=== PATIENT | female | born 1970 | race Caucasian/White ===

== ENCOUNTER 2021-05-30 19:39 | Emergency (ER) | payer MEDICAID ==
[2021-05-30] MEDS ORDERED: Sodium Chloride 0.9% 10 ML Syringe FLUSH PRN (21:04)
[2021-05-30] MEDS ORDERED: Ondansetron 4 MG/2 ML SDV IVPUSH ONE (21:12)
[2021-05-30] MEDS ORDERED: Famotidine 20 MG/2 ML SDV IVPUSH ONE (21:12)
[2021-05-30] MEDS ORDERED: HYDROmorphone 0.5 MG/0.5 ML Syringe IVPUSH ONE ×2 (21:12→23:14)
[2021-05-30] MEDS ORDERED: Sodium Chloride 0.9% 1,000 ML IV SCH (21:15)
--- NOTE | 2021-05-30 22:30 | EDM.PDOC ---
<AbyAsim L - Last Filed: 05/30/21 22:40> ED HPI GENERAL MEDICAL PROBLEM - General Chief Complaint: Abdominal Pain Stated Complaint: ABDOMINAL PAIN Time Seen by Provider: 05/30/21 20:53 Source of Information: Reports: Patient, RN Notes Reviewed - History of Present Illness INITIAL COMMENTS - FREE TEXT/NARRATIVE: 51 yr old female comes in with severe upper abd pain. She had frequent abd pain but this has been much worse than usual for about the past 5 hrs. Has had some nausea, not actively vomiting. No BM today. Not sure if she is constipated, "has not been eating much". No chest pain, fever or chills. The pain at times does radiate to her back. 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: Reports: Other Medication(s) Upper Abdominal Pain Score (Numeric/FACES): 8 - Related Data Allergies Allergy/AdvReac Type Severity Reaction Status Date / Time azithromycin [From Zithromax] Allergy Cannot Verified 05/30/21 20:23 Remember codeine Allergy Cannot Verified 05/30/21 20:23 Remember ketorolac Allergy Cannot Verified 05/30/21 20:23 Remember prussian blue (insoluble) Allergy Cannot Verified 05/30/21 20:23 [From Radiogardase] Remember topiramate [From Topamax] Allergy Cannot Verified 05/30/21 20:23 Remember Home Meds: Home Meds Aspirin 81 mg PO DAILY 05/30/21 [History] ClonazePAM [KlonoPIN] 0.5 mg PO BID PRN 05/30/21 [History] Clopidogrel [Plavix] 75 mg PO ASDIRECTED 05/30/21 [History] Escitalopram [Lexapro] 20 mg PO DAILY 05/30/21 [History] Levothyroxine 125 mcg PO ACBREAKFAST 05/30/21 [History] Metoprolol Succinate 50 mg PO ASDIRECTED 05/30/21 [History] Pravastatin [Pravachol] 20 mg PO DAILY 05/30/21 [History] Promethazine [Phenergan] 25 mg PO Q6H PRN 05/30/21 [History] Zonisamide 100 mg PO ASDIRECTED 05/30/21 [History] busPIRone [Buspar] 10 mg PO ASDIRECTED 05/30/21 [History] levETIRAcetam [Keppra] 750 mg PO BID 05/30/21 [History] oxyCODONE HCl/Acetaminophen [Percocet 10-325 mg Tablet] 1 each PO ASDIRECTED 05/30/21 [History] traZODone 1 tab PO BEDTIME 05/30/21 [History] Past Medical History HEENT History: Reports: None Cardiovascular History: Reports: High Cholesterol, Hypertension, [place] Other Cardiovascular History: age 37 AICD Respiratory History: Reports: None Gastrointestinal History: Reports: Chronic Diarrhea, GERD Genitourinary History: Reports: None [employer] DEAN History: Reports: Musculoskeletal History: Reports: Arthritis, Back Pain, Chronic Neurological History: Reports: Seizure Psychiatric History: Reports: Anxiety, Depression Endocrine/Metabolic History: Reports: Hypothyroidism Hematologic History: Reports: None Immunologic History: Reports: None Oncologic (Cancer) History: Reports: None Dermatologic History: Reports: None - Infectious Disease History Infectious Disease History: Reports: Chicken Pox - Past Surgical History HEENT Surgical History: Reports: Naso-Sinus Surgery, Tonsillectomy Cardiovascular Surgical History: Reports: AICD, Other (See Below) Other Cardiovascular Surgeries/Procedures: mesinteric bypass Social & Family History - Family History Family Medical History: No Pertinent Family History - Tobacco Use Tobacco Use Status *Q: Current Every Day Tobacco User Years of Tobacco use: 20 Packs/Tins Daily: 1 - Caffeine Use Caffeine Use: Reports: Coffee - Recreational Drug Use Recreational Drug Use: No ED ROS GENERAL - Review of Systems Review Of Systems: See Below Constitutional: Denies: Fever, Chills, Diaphoresis HEENT: Reports: No Symptoms Respiratory: Denies: Shortness of Breath Cardiovascular: Denies: Chest Pain GI/Abdominal: Reports: Abdominal Pain, Constipation, Nausea. Denies: Diarrhea, Hematochezia, Melena, Vomiting Musculoskeletal: Reports: Back Pain Skin: Reports: No Symptoms Neurological: Reports: Dizziness ED EXAM, GI/ABD - Physical Exam Exam: See Below General Appearance: Alert, Anxious, Moderate Distress Throat/Mouth: Normal Inspection Head: Atraumatic Neck: Supple Respiratory/Chest: No Respiratory Distress, Lungs Clear, Normal Breath Sounds Cardiovascular: Regular Rate, Rhythm GI/Abdominal Exam: Soft, Tender (upper abd and mid abd, lower abd nontender) Back Exam: No: CVA Tenderness (L), CVA Tenderness (R) Extremities: Normal Inspection. No: Pedal Edema, Leg Pain Skin Exam: Warm, Dry, Normal Color, No Rash Course - Re-Assessments/Exams Free Text/Narrative Re-Assessment/Exam: 05/30/21 22:42 WBC 12,000. CRP 0.2. Lipase and other chem. are nl. Flat and upright abd shows multiple air fluid levels. She has had prior major abd surgery as noted quite a few yrs ago so could have bowel obstruction. Have ordered CT of abd with oral and IV contrast. She states she did react to IV dye may yrs ago but did have a CT in [place] more recently, was premedicated and had no problems with that. It is now approaching end of my shift so will transfer care to Dr Estrada. Departure - Departure Disposition: Home, Self-Care 01 Clinical Impression: Abdominal pain - Discharge Information Referrals: Maryanne Mathis MD [Primary Care Provider] - Forms: ED Department Discharge Additional Instructions: Return to the emergency room with any questions problems or worsening symptoms. Use your routine medications for nausea and pain. Follow-up with your regular physician towards end of this week for recheck. Sepsis Event Note (ED) - Evaluation Sepsis Screening Result: No Definite Risk <Micah Estrada - Last Filed: 05/31/21 02:23> Course - Vital Signs Last Recorded V/S: Last Vital Signs Temp 36.7 C 05/30/21 20:34 Pulse 67 05/30/21 20:34 Resp 18 05/30/21 20:34 BP 143/85 H 05/30/21 20:34 Pulse Ox 100 05/30/21 20:34 - Orders/Labs/Meds Orders: Active Orders 24 hr Category Date Time Status Peripheral IV Care [RC] . DIRECTED Care 05/30/21 21:05 Active Abdomen 2V AP Flat Upright [CR] Stat Exams 05/30/21 21:13 Taken Abdomen Pelvis w Cont [CT] Stat Exams 05/30/21 22:40 Taken Lactated Ringers [Ringers, Lactated] 1,000 ml Med 05/30/21 22:45 Active IV ASDIRECTED Sodium Chloride 0.9% [Normal Saline] 1,000 ml Med 05/30/21 21:15 Active IV ONETIME Sodium Chloride 0.9% [Saline Flush] Med 05/30/21 21:04 Active 10 ml FLUSH ASDIRECTED PRN Peripheral IV Insertion Adult [OM.PC] Stat Oth 05/30/21 21:05 Ordered Medication Orders Sodium Chloride (Normal Saline) 1,000 mls @ 999 mls/hr IV ONETIME LAURA Last Admin: 05/30/21 21:22 Dose: 999 mls/hr Documented by: CLINTON Lactated Ringer's (Ringers, Lactated) 1,000 mls @ 150 mls/hr IV ASDIRECTED LAURA Last Admin: 05/30/21 23:05 Dose: 150 mls/hr Documented by: [id number] Sodium Chloride (Sodium Chloride 0.9% 10 Ml Syringe) 10 ml FLUSH ASDIRECTED PRN PRN Reason: Keep Vein Open Last Admin: 05/30/21 21:23 Dose: 10 ml Documented by: [id number] Labs: Laboratory Tests 05/30/21 05/30/21 Range/Units 21:20 21:20 WBC 12.31 H (3.98-10.04) K/mm3 RBC 4.27 (3.98-5.22) M/mm3 Hgb 13.9 (11.2-15.7) gm/dl Hct 38.4 (34.1-44.9) % MCV 89.9 (79.4-94.8) fl MCH 32.6 H (25.6-32.2) pg MCHC 36.2 H (32.2-35.5) g/dl RDW Std Deviation 39.8 (36.4-46.3) fL Plt Count 288 (182-369) K/mm3 MPV 8.7 L (9.4-12.3) fl Neut % (Auto) 77.1 H (34.0-71.1) % Lymph % (Auto) 12.4 L (19.3-51.7) % [place] % (Auto) 9.2 (4.7-12.5) % Eos % (Auto) 1.1 (0.7-5.8) Baso % (Auto) 0.2 (0.1-1.2) % Neut # (Auto) 9.49 H (1.56-6.13) K/mm3 Lymph # (Auto) 1.53 (1.18-3.74) K/mm3 [place] # (Auto) 1.13 H (0.24-0.36) K/mm3 Eos # (Auto) 0.14 (0.04-0.36) K/mm3 Baso # (Auto) 0.02 (0.01-0.08) K/mm3 Manual Slide Review Normal smear Sodium 138 (136-145) mEq/L Potassium 3.3 L (3.5-5.1) mEq/L Chloride 102 (98-107) mEq/L Carbon Dioxide 25 (21-32) mEq/L Anion Gap 14.3 (5-15) BUN 14 (7-18) mg/dL Creatinine 1.0 (0.55-1.02) mg/dL Est Cr Clr Drug Dosing 50.52 mL/min Estimated GFR (MDRD) 58 (>60) mL/min BUN/Creatinine Ratio 14.0 (14-18) Glucose 92 (70-99) mg/dL Calcium 9.4 (8.5-10.1) mg/dL Total Bilirubin 0.4 (0.2-1.0) mg/dL AST 24 (15-37) U/L ALT 42 (14-59) U/L Alkaline Phosphatase 48 (46-116) U/L C-Reactive Protein <0.2 (<1.0) mg/dL Total Protein 7.2 (6.4-8.2) g/dl Albumin 4.2 (3.4-5.0) g/dl Globulin 3.0 gm/dL Albumin/Globulin Ratio 1.4 (1-2) Lipase 126 (73-393) U/L Meds: Medications Generic Name Dose Route Start Last Admin Trade Name Freq PRN Reason Stop Dose Admin Sodium Chloride 1,000 mls @ 999 mls/hr 05/30/21 21:15 05/30/21 21:22 Normal Saline IV 999 mls/hr ONETIME LAURA Administration Lactated Ringer's 1,000 mls @ 150 mls/hr 05/30/21 22:45 05/30/21 23:05 Ringers, Lactated IV 150 mls/hr ASDIRECTED LAURA Administration Sodium Chloride 10 ml 05/30/21 21:04 05/30/21 21:23 Sodium Chloride 0.9% 10 Ml Syringe FLUSH 10 ml ASDIRECTED PRN Administration Keep Vein Open Discontinued Medications Generic Name Dose Route Start Last Admin Trade Name Freq PRAlessia Reason Stop Dose Admin Diphenhydramine HCl 25 mg 05/30/21 22:39 05/30/21 23:05 Diphenhydramine 50 Mg/Ml Sdv IVPUSH 05/30/21 22:40 25 mg ONETIME ONE Administration Famotidine 20 mg 05/30/21 21:12 05/30/21 21:23 Famotidine 20 Mg/2 Ml Sdv IVPUSH 05/30/21 21:13 20 mg ONETIME ONE Administration Hydromorphone HCl 0.5 mg 05/30/21 21:12 05/30/21 21:23 Hydromorphone 0.5 Mg/0.5 Ml Syringe IVPUSH 05/30/21 21:13 0.5 mg ONETIME ONE Administration Hydromorphone HCl 0.5 mg 05/30/21 23:14 05/30/21 23:24 Hydromorphone 0.5 Mg/0.5 Ml Syringe IVPUSH 05/30/21 23:15 0.5 mg ONETIME ONE Administration Methylprednisolone Sodium Succinate 125 mg 05/30/21 22:39 05/30/21 23:05 Methylprednisolone Sodium Succinate 125 Mg/2 Ml Sdv IVPUSH 05/30/21 22:40 125 mg ONETIME ONE Administration Ondansetron HCl 4 mg 05/30/21 21:12 05/30/21 21:23 Ondansetron 4 Mg/2 Ml Sdv IVPUSH 05/30/21 21:13 4 mg ONETIME ONE Administration - Re-Assessments/Exams Free Text/Narrative Re-Assessment/Exam: 05/31/21 02:19 Patient is doing better at this time she still has a little bit of nausea. She has a history of chronic nausea and abdominal pain but tonight things are much worse than normal. At this point the patient is doing considerably better and think she is okay to go home her CAT scan did not show anything definitive. I did discuss the findings of this with the patient. Repeated abdominal exam shows normal bowel sounds soft no localizing tenderness she is got some vague discomfort throughout but she says that is pretty much normal for her. At this point she would like to go home we will discharge. At this point patient declines needing other medications for symptom relief however needs to take her routine medications as she has not taken her evening meds she will take these immediately upon getting home and will delay her morning meds several hours. Departure - Departure Time of Disposition: 02:21 Sepsis Event Note (ED) - Focused Exam Vital Signs: Vital Signs Temp Pulse Resp BP Pulse Ox 05/30/21 20:34 36.7 C 67 18 143/85 H 100
[2021-05-30] MEDS ORDERED: methylPREDNISolone Sodium Succinate 125 MG/2 ML SDV IVPUSH ONE (22:39)
[2021-05-30] MEDS ORDERED: diphenhydrAMINE 50 MG/ML SDV IVPUSH ONE (22:39)
[2021-05-30] MEDS ORDERED: Lactated Ringers 1,000 ML IV SCH (22:45)
--- NOTE | 2021-05-31 08:14 | CR ---
Abdomen: Supine and upright views of the abdomen were obtained. Comparison: No prior abdominal imaging is available, subsequent CT abdomen and pelvis study performed on 05/31/21 is available. Air-fluid levels are seen within nondilated colon. Mildly dilated small bowel loops are seen with differential air-fluid levels. Prior surgery is noted. No free air is seen. Minimal scoliosis is noted within the spine. Prior AICD is noted. Impression: 1. Slightly abnormal bowel gas pattern raising the possibility of gastroenteritis versus mild partial small bowel obstruction. 2. Prior surgery. Diagnostic code #3
--- NOTE | 2021-05-31 08:39 | CT ---
CT abdomen and pelvis Technique: Multiple axial sections were obtained from above the dome of the diaphragm inferiorly through the pubic symphysis. Intravenous and oral contrast was utilized. Delayed images are also obtained through the abdomen and pelvis. Reconstructed coronal and sagittal images were obtained. Comparison: Prior abdomen radiograph of 05/30/21, 9:37 PM; no prior abdomen and pelvis CT is available. Findings: Contrast is noted within the small bowel. Small bowel appears slightly dilated. Scattered gas and fluid are seen within the colon. Visualized lung bases show mild atelectasis. Liver contains no focal abnormality. Gallbladder contains no calcified gallstones. Spleen appears within normal limits. Adrenal glands show no nodule. Kidneys show symmetric contrast enhancement. Delayed images show no cyst or solid abnormality within the kidneys. Contrast is noted on delayed images within the ureters and within the bladder. Pancreas shows no discrete abnormality. Abdominal aorta shows prominent and diffuse atherosclerotic change which continues into the iliac vessels. No retroperitoneal adenopathy or mesenteric abnormalities are seen. No pelvic mass or adenopathy is appreciated. Appendix is not definitely visualized due to fluid-filled small bowel loops in this area. Bone window settings were reviewed which show scattered degenerative change within the spine. Impression: 1. Slightly abnormal bowel gas pattern which represents either gastroenteritis or a mild partial small bowel obstruction. Please correlate with the patient's symptoms. 2. Nothing acute is otherwise seen on CT study of the abdomen and pelvis. Diagnostic code #3 Minimal disagree with preliminary report from [facility], finalized on 05/31/20, 2:51 AM CDT, code 2
== END 2021-05-31 02:35 | disposition home or self-care (01) ==
LOC: JD.ED 19:39
DX: R10.10 Upper abdominal pain, unspecified (principal); R11.0 Nausea; I10 Essential (primary) hypertension; I25.2 Old myocardial infarction; E03.9 Hypothyroidism, unspecified; E78.00 Pure hypercholesterolemia, unspecified; Z79.02 Long term (current) use of antithrombotics/antiplatelets; Z72.0 Tobacco use; Z79.82 Long term (current) use of aspirin
CPT/HCPCS: 36415; 74019; 74177; 80053; 83690; 85025; 86140; 96374; 96375; 96376; 99284; J1170; J1200; J2405; J2930; J3490; J7030; J7120; 99283

== ENCOUNTER 2021-09-06 10:18 | Emergency (ER) | payer MEDICAID ==
[2021-09-06] MEDS ORDERED: LORazepam 2 MG/ML SDV IVPUSH ONE (10:40)
[2021-09-06] MEDS ORDERED: Haloperidol Lactate 5 MG/ML SDV IVPUSH ONE (10:40)
--- NOTE | 2021-09-06 15:25 | EDM.PDOCBH ---
ED HPI GENERAL MEDICAL PROBLEM - General Chief Complaint: Behavioral/Psych Stated Complaint: MARINA AMB Time Seen by Provider: 09/06/21 10:30 Source of Information: Reports: Patient History Limitations: Reports: No Limitations - History of Present Illness INITIAL COMMENTS - FREE TEXT/NARRATIVE: Patient is a 51-year-old female with a past medical history of depression and anxiety presenting with a chief complaint of anxiety. Patient states she feels like her heart is pounding out of her chest and she cannot sit still. She has experienced this in the past but never this severe. She reports feeling worse more so over the past few days. She states she never leaves her house. She states she was home alone. Does not seem to know what is triggering it. She states she was seen by [facility] vickie in March but did not agree with treatment plans and did not take medications as recommended. She reports weaning off her Klonopin over the past year. She reports continued use of opioid pain medication. Patient denies lower extremity swelling, calf pain, palpitations. Patient denies any suicidal or homicidal ideations. Denies any sort of hallucinations or drug abuse. Treatments CLINICAL SUPPORT MANAGER: Reports: IV/IO Chest Pain Score (Numeric/FACES): 5 - Related Data Allergies Allergy/AdvReac Type Severity Reaction Status Date / Time azithromycin [From Zithromax] Allergy Cannot Verified 09/06/21 10:25 Remember codeine Allergy Cannot Verified 09/06/21 10:25 Remember ketorolac Allergy Cannot Verified 09/06/21 10:25 Remember prussian blue (insoluble) Allergy Cannot Verified 09/06/21 10:25 [From Radiogardase] Remember topiramate [From Topamax] Allergy Cannot Verified 09/06/21 10:25 Remember Home Meds: Home Meds Aspirin 81 mg PO DAILY 05/30/21 [History] Clopidogrel [Plavix] 75 mg PO DAILY 05/30/21 [History] Escitalopram [Lexapro] 20 mg PO DAILY 05/30/21 [History] Levothyroxine 125 mcg PO ACBREAKFAST 05/30/21 [History] Metoprolol Succinate 50 mg PO DAILY 05/30/21 [History] Pravastatin [Pravachol] 40 mg PO DAILY 05/30/21 [History] Promethazine [Phenergan] 12.5 mg PO Q4H PRN 05/30/21 [History] Zonisamide 400 mg PO BEDTIME 05/30/21 [History] levETIRAcetam [Keppra] 750 mg PO BID 05/30/21 [History] oxyCODONE HCl/Acetaminophen [Percocet 10-325 mg Tablet] 1 tab PO DAILY PRN 05/30/21 [History] traZODone 50 mg PO BEDTIME 05/30/21 [History] Past Medical History HEENT History: Reports: None Cardiovascular History: Reports: High Cholesterol, Hypertension, CT Other Cardiovascular History: age 37 AICD Respiratory History: Reports: None Gastrointestinal History: Reports: Chronic Diarrhea, GERD Genitourinary History: Reports: None 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: Musculoskeletal History: Reports: Arthritis, Back Pain, Chronic Neurological History: Reports: Seizure Psychiatric History: Reports: Anxiety, Depression Endocrine/Metabolic History: Reports: Hypothyroidism Hematologic History: Reports: None Immunologic History: Reports: None Oncologic (Cancer) History: Reports: None Dermatologic History: Reports: None - Infectious Disease History Infectious Disease History: Reports: Chicken Pox - Past Surgical History HEENT Surgical History: Reports: Naso-Sinus Surgery, Tonsillectomy Cardiovascular Surgical History: Reports: AICD, Other (See Below) Other Cardiovascular Surgeries/Procedures: mesinteric bypass Social & Family History - Family History Family Medical History: No Pertinent Family History - Tobacco Use Tobacco Use Status *Q: Current Every Day Tobacco User Years of Tobacco use: 35 Packs/Tins Daily: 0.5 - Caffeine Use Caffeine Use: Reports: Coffee - Recreational Drug Use Recreational Drug Use: No ED ROS GENERAL - Review of Systems Review Of Systems: See Below Free Text/Narrative/Comment: In addition to that documented in the HPI above, the additional ROS was obtained: Constitutional: Denies fevers or chills Eyes: Denies vision changes ENMT: Denies sore throat CV: Denies chest pain Resp: Denies SOB GI: Denies vomiting or diarrhea : Denies painful urination MSK: Denies recent trauma Skin: Denies new rashes Neuro: Denies new numbness or tingling or weakness Endocrine: Denies unexpected weight loss Heme: Denies bleeding disorders ED EXAM, BEHAVIORAL HEALTH - Physical Exam Exam: See Below Text/Narrative:: I have reviewed the triage vital signs Const: Patient is thin in appearance but nontoxic. Patient does appear extremely anxious demonstrating a mild degree of psychomotor agitation. Eyes: Pupils Equal and reactive to light bilaterally, no conjunctival injection HENT: No signs of trauma or swelling, Neck supple without meningismus CV: Regular Rate Rhythm, Warm, well-perfused extremities RESP: Unlabored respiratory effort GI: soft, non-tender, non-distended, no masses MSK: No gross deformities appreciated Skin: Warm, dry. No rashes Neuro: Alert, contact lens molder II-XII grossly intact. Sensation and motor function of extremities grossly intact. Psych: Anxious mood with tearful affect #1 Interpretation EKG Date: 09/06/21 Time: 11:00 Rhythm: NSR Rate (Beats/Min): 77 [place]: Normal P-Wave: Present QRS: Normal ST-T: Normal QT: Normal Comparison: NA - No Prior EKG EKG Interpretation Comments: Several PVCs noted. Otherwise, normal EKG COURSE, BEHAVIORAL HEALTH COMP - Course Vital Signs: Last Vital Signs Temp 36.6 C 09/06/21 10:19 Pulse 84 09/06/21 10:19 Resp 18 09/06/21 10:19 BP 148/126 H 09/06/21 10:19 Pulse Ox 100 09/06/21 10:19 Orders, Labs, Meds: Laboratory Tests 09/06/21 09/06/21 Range/Units 11:10 11:10 WBC 5.26 (3.98-10.04) K/mm3 RBC 4.39 (3.98-5.22) M/mm3 Hgb 14.1 (11.2-15.7) gm/dl Hct 40.2 (34.1-44.9) % MCV 91.6 (79.4-94.8) fl MCH 32.1 (25.6-32.2) pg MCHC 35.1 (32.2-35.5) g/dl RDW Std Deviation 39.8 (36.4-46.3) fL Plt Count 294 (182-369) K/mm3 MPV 8.6 L (9.4-12.3) fl Neut % (Auto) 71.6 H (34.0-71.1) % Lymph % (Auto) 19.6 (19.3-51.7) % [place] % (Auto) 8.2 (4.7-12.5) % Eos % (Auto) 0.4 L (0.7-5.8) Baso % (Auto) 0.2 (0.1-1.2) % Neut # (Auto) 3.77 (1.56-6.13) K/mm3 Lymph # (Auto) 1.03 L (1.18-3.74) K/mm3 [place] # (Auto) 0.43 H (0.24-0.36) K/mm3 Eos # (Auto) 0.02 L (0.04-0.36) K/mm3 Baso # (Auto) 0.01 (0.01-0.08) K/mm3 Sodium 139 (136-145) mEq/L Potassium 3.6 (3.5-5.1) mEq/L Chloride 103 (98-107) mEq/L Carbon Dioxide 23 (21-32) mEq/L Anion Gap 16.6 H (5-15) BUN 9 (7-18) mg/dL Creatinine 1.0 (0.55-1.02) mg/dL Est Cr Clr Drug Dosing TNP Estimated GFR (MDRD) 58 (>60) mL/min BUN/Creatinine Ratio 9.0 L (14-18) Glucose 99 (70-99) mg/dL Calcium 9.5 (8.5-10.1) mg/dL Total Bilirubin 0.5 (0.2-1.0) mg/dL AST 21 (15-37) U/L ALT 31 (14-59) U/L Alkaline Phosphatase 45 L (46-116) U/L Total Protein 7.5 (6.4-8.2) g/dl Albumin 4.2 (3.4-5.0) g/dl Globulin 3.3 gm/dL Albumin/Globulin Ratio 1.3 (1-2) Medications Discontinued Medications Generic Name Dose Route Start Last Admin Trade Name Freq PRN Reason Stop Dose Admin Haloperidol Lactate 2.5 mg 09/06/21 10:40 09/06/21 11:19 Haloperidol Lactate 5 Mg/Ml Sdv IVPUSH 09/06/21 10:41 2.5 mg ONETIME ONE Administration Lorazepam 0.5 mg 09/06/21 10:40 09/06/21 11:26 Lorazepam 2 Mg/Ml Sdv IVPUSH 09/06/21 10:41 0.5 mg ONETIME ONE Administration Departure - Departure Time of Disposition: 12:30 Disposition: Home, Self-Care 01 Clinical Impression: Panic disorder, Anxiety - Discharge Information *PRESCRIPTION DRUG MONITORING PROGRAM REVIEWED*: Not Applicable *COPY OF PRESCRIPTION DRUG MONITORING REPORT IN PATIENT MARIPOSA: Not Applicable Referrals: PCP,None [Primary Care Provider] - Forms: ED Department Discharge Sepsis Event Note (ED) - Focused Exam Vital Signs: Vital Signs Temp Pulse Resp BP Pulse Ox 09/06/21 10:19 36.6 C 84 18 148/126 H 100 - Assessment/Plan Assessment:: Patient is a 31-year-old female presenting to the emergency room with chief complaint of anxiety. Patient had unremarkable ER course. Patient felt significantly better after administration of Haldol and Ativan. Denies any chest pain or shortness of breath. Differential diagnosis considered including severe anemia, muscular abnormality, cardiac ischemia. Patient patient's history and examination, likely panic disorder with anxiety. Gee came and evaluated the patient in the emergency room and will follow up with the patient as an outpatient. They also agreed to drive the patient home after receiving this medication. Return precautions discussed with patient all questions were addressed and answered. Patient agrees with plan of care. Indication for emergent psychiatric hospitalization as patient does not demonstrate danger to herself or others. No evidence of underlying medical emergency at this time.
== END 2021-09-06 14:15 | disposition home or self-care (01) ==
LOC: JD.ED 10:18
DX: F41.0 Panic disorder [episodic paroxysmal anxiety] (principal); E78.00 Pure hypercholesterolemia, unspecified; I10 Essential (primary) hypertension; I25.2 Old myocardial infarction; K21.9 Gastro-esophageal reflux disease without esophagitis; E03.9 Hypothyroidism, unspecified; Z88.1 Allergy status to other antibiotic agents; Z88.5 Allergy status to narcotic agent; Z88.8 Allergy status to other drugs, medicaments and biological substances; Z79.82 Long term (current) use of aspirin; Z79.02 Long term (current) use of antithrombotics/antiplatelets; Z72.0 Tobacco use
CPT/HCPCS: 36415; 80053; 85025; 93005; 96374; 96375; 99284; J1630; J2060

== ENCOUNTER 2021-12-24 11:31 | Emergency (ER) | payer MEDICAID ==
[2021-12-24] MEDS ORDERED: Sodium Chloride 0.9% 1,000 ML IV STA (12:27)
[2021-12-24] MEDS ORDERED: Ondansetron 4 MG/2 ML SDV IVPUSH ONE (12:27)
[2021-12-24] MEDS ORDERED: Sodium Chloride 0.9% 10 ML Syringe FLUSH PRN (12:27)
[2021-12-24] MEDS ORDERED: HYDROmorphone 1 MG/ML Syringe IVPUSH ONE (12:29)
== END 2021-12-24 15:00 | disposition home or self-care (01) ==
LOC: JD.ED 11:31
DX: R10.84 Generalized abdominal pain (principal); E78.00 Pure hypercholesterolemia, unspecified; I10 Essential (primary) hypertension; I25.2 Old myocardial infarction; M19.90 Unspecified osteoarthritis, unspecified site; E03.9 Hypothyroidism, unspecified; Z88.1 Allergy status to other antibiotic agents; Z88.5 Allergy status to narcotic agent; Z88.8 Allergy status to other drugs, medicaments and biological substances; Z79.82 Long term (current) use of aspirin; Z79.02 Long term (current) use of antithrombotics/antiplatelets; Z79.899 Other long term (current) drug therapy
CPT/HCPCS: 36415; 80053; 80143; 80179; 80306; 80307; 81001; 83690; 85025; 96374; 96375; 99285; J1170; J2405; J7030; 99284

== ENCOUNTER 2021-12-25 17:51 | Emergency (ER) | payer MEDICAID ==
[2021-12-25] MEDS ORDERED: LORazepam 1 MG Tab PO ONE ×2 (19:38→21:35)
[2021-12-26] MEDS ORDERED: traZODone 50 MG Tab PO ONE (00:41)
[2021-12-26] MEDS ORDERED: LORazepam 1 MG Tab PO ONE (00:57)
== END 2021-12-26 01:25 | disposition home or self-care (01) ==
LOC: JD.ED 17:51
DX: F41.9 Anxiety disorder, unspecified (principal); I10 Essential (primary) hypertension; E78.00 Pure hypercholesterolemia, unspecified; I25.2 Old myocardial infarction; M19.90 Unspecified osteoarthritis, unspecified site; E03.9 Hypothyroidism, unspecified; R56.9 Unspecified convulsions; Z72.0 Tobacco use; Z88.1 Allergy status to other antibiotic agents; Z88.5 Allergy status to narcotic agent; Z88.8 Allergy status to other drugs, medicaments and biological substances; Z79.82 Long term (current) use of aspirin; Z79.02 Long term (current) use of antithrombotics/antiplatelets; Z79.899 Other long term (current) drug therapy
CPT/HCPCS: 36415; 71045; 80053; 80306; 84484; 85025; 85379; 93005; 99284; A9270